=== PATIENT | male | born 1990 | race Caucasian/White ===

== ENCOUNTER 2019-08-13 21:34 | Emergency (ER) | payer OTHER ==
[2019-08-13] MEDS ORDERED: Adacel (T-DAP) 0.5 ML SYRINGE ONE (21:47)
[2019-08-13] MEDS ORDERED: Lidocaine 1% w/Epinephrine 1:100K 20 ML VIAL ONE ×2 (21:54→22:26)
[2019-08-13] MEDS ORDERED: HYDROcodone/Acetaminophen 5/325 mg Tablet ONE (21:56)
--- NOTE | 2019-08-13 22:21 | RAD ---
XR Tib Fib Rt Leg 2 View HISTORY: Fall with tib-fib injury COMPARISON: None. FINDINGS: There is a soft tissue laceration anterior to the tibia. There appears to be air within the joint space. There is no evidence of fracture. IMPRESSION: Soft tissue laceration with what appears to be air within the joint space of the knee. No fracture.
[2019-08-13] MEDS ORDERED: Lidocaine 4% Cream 5 GM TUBE w/ Tegaderm ONE (22:54)
[2019-08-14] MEDS ORDERED: Clindamycin/D5W 900 mg/50 ml Premix Bag ONE ×2 (00:08→00:09)
--- NOTE | 2019-08-14 04:54 | CON ---
DATE OF CONSULTATION: 08/14/2019 HISTORY OF PRESENT ILLNESS: Mr. Prater is a 29-year-old male, status post fall and laceration of his right knee trying to get into the hot tub. The patient states that he did not submerge his knee into the hot tub. He did have alcohol. Today, his pain is currently controlled, but was 3/10 on admission. The patient is resting comfortably in bed. Significant other at the bedside. PAST MEDICAL HISTORY: Hypothyroidism. PAST SURGICAL HISTORY: None. MEDICATIONS: Levothyroxine. ALLERGIES: CEPHALOSPORINS AND SULFA. SOCIAL HISTORY: Positive alcohol. Positive marijuana. Negative tobacco. 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 REVIEW OF SYSTEMS: Noncontributory. PHYSICAL EXAMINATION: GENERAL: Alert and oriented male, in no acute distress. Resting comfortably in bed. EXTREMITIES: Right lower extremity shows neurovascular intact to right foot. 2 + DP and PT pulses. The patient has good straight leg raise. He is able to bend and extend from 40 to 0. Palpation in the wound, I could feel a laceration of a portion of the patient's tendon, it is about a 7 to 8 cm laceration oblique near the insertion of the patellar tendon as well as near Gerdy's tubercle. He has otherwise stable ligamentous exam. The patient's radiographs showed concern for gas in the joint, but no acute fractures. IMPRESSION: 1. Partial patellar tendon laceration. 2. Closed joint. ASSESSMENT AND PLAN: I injected the patient's joint, it was negative. The patient will be irrigated and debrided by ER and closed, and placed a knee immobilizer. He received tetanus, received single dose IV clindamycin, and be sent home on p.o. clindamycin. He will follow up with orthopedic surgeon in [place]. ADDENDUM: I discussed with the patient that I could not ascertain the extent of patient's patellar tendon laceration on physical exam, I felt that it was likely partially torn. I discussed with him, performed the aspiration injection in the ER versus in the OR with washout and primary closure of the patellar tendon, as well as soft tissue closure. The patient did not desire to have that performed, therefore, I performed injection in the ER and the wound was closed by Emergency Department. He understood the potential risk of complete rupture and understood that the best way to ascertain would be at closure at this time. He understood all this and desired to have it to be washed out and follow up in [place]; therefore, I agreed with patient's wishes and after injecting his knee, it washed and closed by ER. Job ID: [id number] HENRIK
--- NOTE | 2019-08-15 11:05 | OP ---
DATE OF PROCEDURE: 08/14/2019 PREOPERATIVE DIAGNOSIS: Possible open joint with right knee laceration patellar tendon injury. POSTOPERATIVE DIAGNOSIS: Closed joint with partial patellar tendon laceration. PROCEDURE PERFORMED: Knee joint injection. ANESTHESIA: 10 mL of 1% lidocaine with epinephrine. COMPLICATIONS: None. HISTORY OF PRESENT ILLNESS: Mr. Prater is a 29-year-old male who suffered laceration to his knee. I discussed with him the risks and benefits of aspiration and injection to include infection of the joint, need for further surgeries, pain, difficulty with fusion, damage to vital structures. The patient understood the risks and benefits and elected to proceed. DESCRIPTION OF PROCEDURE: After time-out was performed, the patient had the skin cleaned first with chlorhexidine, Betadine, and chlorhexidine prep. It was allowed to dry. We injected with 10 mL lidocaine 1% and it tracked about 7 mL in the joint, 3 mL out of the skin. I then used an 18-gauge needle and put 130 mL of fluid into the patient's joint. I could not see any egress of fluid out of his knee wound. Therefore, I aspirated the remainder of his fluid that I could get out. I got about 65-70 mL of fluid out and completed my procedure. The patient will have his knee wound closed by ER. We followed up in [place]. Job ID: [id number]
== END 2019-08-14 01:34 | disposition home or self-care (01) ==
LOC: ERS 21:34
DX: S86.921A Laceration of unspecified muscle(s) and tendon(s) at lower leg level, right leg, initial encounter (principal); E03.9 Hypothyroidism, unspecified; F32.9 Major depressive disorder, single episode, unspecified; Z23 Encounter for immunization; W18.30XA Fall on same level, unspecified, initial encounter
CPT/HCPCS: 12034; 90471; 90715; 96365; J2001; J3490